=== PATIENT | female | born 1995 ===

== ENCOUNTER 2019-04-15 07:08 | Emergency (ER) | payer BC ==
[2019-04-15] MEDS ORDERED: Rabies VIRUS VACCINE (RabAvert)* 2.5 UNITS VIAL IM ONE (07:37)
[2019-04-15] MEDS ORDERED: Rabies Immune Globulin/PF 1ML* 1 ML/300 UNITS VIAL IM ONE (07:37)
[2019-04-15] MEDS ORDERED: Tetan/Diph/Pertus SYR(Tdap)* 0.5 ML SYR(BOOSTRIX) use SYR contains LATEX IM ONE (07:38)
--- NOTE | 2019-04-15 07:39 | UC ---
UC General HPI - HPI Summary HPI Summary: 23-year-old woman comes in with a chief complaint of exposure to a bat in her room while she was asleep. Occurred 2 days ago. She spoke with the health department and they recommended the rabies series. Patient did not find any bites on her she feels well. - History of Current Complaint Chief Complaint: UCBiteInjury Stated Complaint: RABIES EXPOSURE Time Seen by Provider: 04/15/19 07:16 Hx Last Menstrual Period: 04/01/19 Pain Intensity: 0 - Allergy/Home Medications Allergies/Adverse Reactions: Allergies Allergy/AdvReac Type Severity Reaction Status Date / Time No Known Allergies Allergy Verified 04/15/19 07:24 Home Medications: Home Medications NK [No Home Medications Reported] 04/15/19 [History Confirmed 04/15/19] PMH/Surg Hx/FS Hx/Imm Hx Previously Healthy: Yes - Surgical History Surgical History: Yes Surgery Procedure, Year, and Place: L ACL repair 2012 - Family History Known Family History: Positive: Non-Contributory - Social History Alcohol Use: None Substance Use Type: None Smoking Status (MU): Never Smoked Tobacco Review of Systems All Other Systems Reviewed And Are Negative: Yes Constitutional: Positive: Negative Skin: Positive: Negative Eyes: Positive: Negative ENT: Positive: Negative Respiratory: Positive: Negative Cardiovascular: Positive: Negative Gastrointestinal: Positive: Negative Motor: Positive: Negative Neurovascular: Positive: Negative Musculoskeletal: Positive: Negative Neurological: Positive: Negative Psychological: Positive: Negative Is Patient Immunocompromised?: No Physical Exam Triage Information Reviewed: Yes Appearance: Well-Appearing, No Pain Distress, Well-Nourished Vital Signs: Initial Vital Signs Temp 97.9 F 04/15/19 07:25 Pulse 85 04/15/19 07:25 Resp 16 04/15/19 07:25 BP 108/64 04/15/19 07:25 Pulse Ox 100 04/15/19 07:25 Vital Signs Reviewed: Yes Eye Exam: Normal Eyes: Positive: Conjunctiva Clear Neck: Positive: Supple Respiratory: Positive: Lungs clear, Normal breath sounds, No respiratory distress Cardiovascular: Positive: RRR Musculoskeletal Exam: Normal Musculoskeletal: Positive: Strength Intact, ROM Intact Neurological: Positive: Alert Psychological: Positive: Age Appropriate Behavior Skin Exam: Normal Course/Dx - Course Course Of Treatment: TDap, Rabies Vaccine and IG given in clinic - Diagnoses Provider Diagnosis: Rabies exposure Discharge - Sign-Out/Discharge Documenting (check all that apply): Patient Departure All imaging exams completed and their final reports reviewed: No Studies - Discharge Plan Condition: Stable Disposition: HOME Patient Education Materials: Rabies (ED), Rabies Vaccine (ED), Rabies Immune Globulin (By injection) Referrals: [facility] [Outside] Additional Instructions: FOLLOW UP WITH THE [facility], . YOU WERE GIVEN THE FIRST RABIES VACCINE TODAY. YOU NEED TO CONTINUE THE SERIES WITH THE HEALTH DEPARTMENT. YOU WERE ALSO GIVEN RABIES IMMUNE GLOBULIN TODAY. - Billing Disposition and Condition Condition: STABLE Disposition: Home
== END 2019-04-15 08:30 | disposition home or self-care (01) ==
LOC: UCEAST 07:08
DX: Z29.14 Encounter for prophylactic rabies immune globulin (principal)
CPT/HCPCS: 90375; 90471; 90472; 90675; 90715; 96372; 99201; G0463